=== PATIENT | female | born 1990 | race Caucasian/White ===

== ENCOUNTER 2020-07-08 11:13 | Emergency (ER) | payer OTHER ==
[2020-07-08] MEDS ORDERED: CYCLOBENZAPRINE10 MG PO (13:05)
[2020-07-08] MEDS ORDERED: NAPROSYN500 MG PO (13:05)
== END 2020-07-08 13:33 | disposition home or self-care (01) ==
LOC: ER1 11:13
DX: S70.01XA Contusion of right hip, initial encounter (principal); F17.210 Nicotine dependence, cigarettes, uncomplicated; Z86.19 Personal history of other infectious and parasitic diseases; W19.XXXA Unspecified fall, initial encounter; Y92.830 Public park as the place of occurrence of the external cause
CPT/HCPCS: 73502; 96372; 99283; J1885